=== PATIENT | male | born 1960 | race African-American/Black ===

== ENCOUNTER 2024-10-17 18:38 | Emergency (ER) | payer OTHER ==
[2024-10-17] MEDS ORDERED: Furosemide 40 MG (4 mL) VIAL ONE (18:55)
[2024-10-17 20:02] LABS: #Basophils 0.1 thou/uL (0.0-0.2); #Lymphocytes 1.1 thou/uL (1.20-3.40); #Monocytes 0.9 thou/uL (0.11-0.59); #Neutrophils 9.6 thou/uL (1.40-6.50); %Basophils 0.9 % (0.0-1.0); %Eosinophils 0.4 % (0.0-10.0); %Lymphocytes 9.6 % (21.0-51.0); %Monocytes 7.8 % (0.0-10.0); %Neutrophils 81.4 % (42.0-75.0)
[2024-10-17 20:09] LABS: Anisocytosis MODERATE=16-30 cells (100X) (0-5/hpf); Hematocrit 22.1 % (42.0-52.0); Hemoglobin 5.9 g/dL (14.0-18.0); Hypochromia MODERATE=16-30 cells (100X) (0-5/hpf); MDiff Complete? YES; Mean Corpuscular HGB CONC 26.8 g/dL (32.0-36.0); Mean Corpuscular Hemoglobin 14.6 pg (27.0-31.0); Mean Corpuscular Volume 54.5 fl (78.0-98.0); Mean Platelet Volume 5.3 fL (7.4-10.4); Microcytosis MODERATE=15-30 cells (100X) (0-5/hpf); Ovalocytes SLIGHT = 2-5 cells (100X) (0-1/hpf); Platelet Adequacy Comment Appears Adequate; Platelet Count 394 10x3/uL (130-400); RBC Distribution Width 16.6 % (11.5-14.5); Red Blood Cell (RBC) Count 4.06 mill/uL (4.70-6.10); Reflex for Review?? YES; Schistocytes SLIGHT = 2-5 cells (100X) (0-1/hpf); White Blood Cell (WBC) Count 11.8 10x3/uL (4.8-10.8)
[2024-10-17 20:17] LABS: ALT (SGPT) 20 U/L (8-55); AST (SGOT) 19 U/L (5-34); Albumin 3.4 g/dL (3.4-4.8); Alkaline Phosphatase 106 U/L (40-110); Anion Gap 15 mmol/L (10-20); BUN (Urea Nitrogen) 9 mg/dL (8.4-25.7); Bilirubin, Total 1.3 mg/dL (0.2-1.2); Calc. Creatinine Clearance 0 mL/min (70-130); Calcium 8.5 mg/dL (7.8-10.44); Carbon Dioxide 24 mmol/L (23-31); Chloride 104 mmol/L (98-107); Estimated GFR 97; Globulin 2.6 g/dL (2.4-3.5); Glucose 101 mg/dL (80-115); Potassium 4.6 mmol/L (3.5-5.1); Sodium 138 mmol/L (136-145)
[2024-10-17 20:23] LABS: Troponin I 0.043 ng/mL (< 0.028)
[2024-10-17 21:57] LABS: Troponin I 0.043 ng/mL (< 0.028)
[2024-10-17 22:16] LABS: INR-International Normal Ratio 1.2; Prothrombin Time 15.7 sec (12.0-14.7)
[2024-10-17 22:17] LABS: PTT 35.8 sec (22.9-36.1)
[2024-10-18 12:20] LABS: Iron 13 ug/dL (65-175); Iron Binding Capacity, Total 406 mcg/dL (261-462)
== END 2024-10-18 00:05 | disposition short-term general hospital (02) ==
LOC: MADERS 18:38
DX: I50.9 Heart failure, unspecified (principal); D64.9 Anemia, unspecified; R79.89 Other specified abnormal findings of blood chemistry; Z55.6 Problems related to health literacy
CPT/HCPCS: 36430; 71045; 80053; 82274; 83540; 83550; 83880; 84484; 85025; 85060; 85610; 85730; 86850; 86900; 86901; 93005; 96374; J1940; P9016